=== PATIENT | male | born 1985 | race Caucasian/White ===

== ENCOUNTER 2019-02-22 13:28 | Emergency (ER) | payer SELFPAY ==
[2019-02-22] MEDS ORDERED: Sodium Chloride 0.9% 1,000 ML IV ONE (13:40)
[2019-02-22] MEDS ORDERED: Ondansetron 4 MG/2 ML SDV IVPUSH ONE (13:40)
--- NOTE | 2019-02-22 13:42 | EDM.PDOC ---
ED HPI GENERAL MEDICAL PROBLEM - General Chief Complaint: Gastrointestinal Problem Stated Complaint: VOMITING Time Seen by Provider: 02/22/19 13:31 - History of Present Illness INITIAL COMMENTS - FREE TEXT/NARRATIVE: HISTORY AND PHYSICAL: History of present illness: Patient a 33-year-old white male with history of [id number] diabetes who presents with concern of nausea vomiting diarrhea after having eaten out at [employer] yesterday. No fever no chills no chest pain short of breath or other concern Review of systems: As per history of present illness and below otherwise all systems reviewed and negative. Past medical history: As per history of present illness and as reviewed below otherwise noncontributory. Surgical history: As per history of present illness and as reviewed below otherwise noncontributory. Social history: No reported history of drug or alcohol abuse. Family history: As per history of present illness and as reviewed below otherwise noncontributory. Physical exam: HEENT: Atraumatic, normocephalic, pupils reactive, negative for conjunctival pallor or scleral icterus, mucous membranes moist, throat clear, neck supple, nontender, trachea midline. Lungs: Clear to auscultation, breath sounds equal bilaterally, chest nontender. Heart: S1S2, regular, negative for clicks, rubs, or JVD. Abdomen: Soft, nondistended, nontender. Negative for masses or hepatosplenomegaly. Negative for costovertebral tenderness. Pelvis: Stable nontender. Genitourinary: Deferred. Rectal: Deferred. Extremities: Atraumatic, negative for cords or calf pain. Neurovascular unremarkable. Neuro: Awake, alert, oriented. Cranial nerves II through XII unremarkable. Cerebellum unremarkable. Motor and sensory unremarkable throughout. Exam nonfocal. Diagnostics: CBC CMP amylase lipase Therapeutics: Saline 1 L bolus Zofran 4 mg IV Impression: #1 gastroenteritis #2 history of [id number] diabetes Definitive disposition and diagnosis as appropriate pending reevaluation and review of above. - Related Data Allergies Allergy/AdvReac Type Severity Reaction Status Date / Time No Known Allergies Allergy Verified 02/22/19 13:43 Home Meds: Home Meds metFORMIN [Glucophage XR] 1,000 mg PO BID 02/22/19 [History] ED ROS GENERAL - Review of Systems Review Of Systems: ROS reveals no pertinent complaints other than HPI. ED EXAM, GENERAL - Physical Exam Exam: See Below (See dictation) Course - Vital Signs Text/Narrative:: Patient refusing any diagnostics he does agree to oral Zofran request discharge Last Recorded V/S: Last Vital Signs Temp 36.0 C 02/22/19 13:40 Pulse 105 H 02/22/19 13:40 Resp 18 02/22/19 13:40 BP 120/88 02/22/19 13:40 Pulse Ox 100 02/22/19 13:40 - Orders/Labs/Meds Meds: Medications Discontinued Medications Generic Name Dose Route Start Last Admin Trade Name Renea PRN Reason Stop Dose Admin Sodium Chloride 1,000 mls @ 999 mls/hr 02/22/19 13:40 02/22/19 13:58 Normal Saline IV 02/22/19 14:40 Not Given STAT ONE Ondansetron HCl 4 mg 02/22/19 13:40 02/22/19 13:58 Zofran IVPUSH 02/22/19 13:41 Not Given ONETIME ONE Ondansetron HCl 4 mg 02/22/19 13:54 02/22/19 13:57 Zofran Odt PO 02/22/19 13:55 4 mg ONETIME ONE Administration Departure - Departure Time of Disposition: 14:10 Disposition: Home, Self-Care 01 Clinical Impression: Nausea, vomiting, and diarrhea - Discharge Information Instructions: Diarrhea, Adult, Nausea and Vomiting, Adult Referrals: Erika Romero [Ordering Only Provider] - PCP,None [Primary Care Provider] - Forms: ED Department Discharge Additional Instructions: Follow up with primary care provider is symptoms continue in next 24-48 hours.
[2019-02-22] MEDS ORDERED: Ondansetron 4 MG Tab.DIS PO ONE (13:54)
== END 2019-02-22 14:13 | disposition home or self-care (01) ==
LOC: MW.ED 13:28
DX: K52.9 Noninfective gastroenteritis and colitis, unspecified (principal); Z79.84 Long term (current) use of oral hypoglycemic drugs; E11.9 Type 2 diabetes mellitus without complications
CPT/HCPCS: 99283; A9270